=== PATIENT | female | born 1960 | race Two or more races ===

== ENCOUNTER 2023-08-08 19:38 | Inpatient (IN) | payer SELFPAY ==
[~2023-08-08] VITALS: Ht 147.3 cm; Wt 96.9 kg
[2023-08-08] MEDS ORDERED: METOCLOPRAMIDE HCL 5 MG/ML 2 ML VIAL ONE (19:41)
[2023-08-08] MEDS: METOCLOPRAMIDE HCL 5 MG/ML 2 ML VIAL IVP ONE ×2 (19:45→20:20)
[2023-08-08] MEDS: SODIUM CHLORIDE 0.9% 1,000 ML IV ONE (19:55)
[2023-08-08] MEDS: HYDROmorphone HCL 2 MG/ML SYRINGE IVP ONE (19:58)
[2023-08-08 20:12] LABS: HEMATOCRIT 46.1 % (36-46); HEMOGLOBIN 15.4 g/dL (12.0-16.0); MEAN CORPUSCULAR HEMOGLOBIN 32.7 pg (26.0-34.0); MEAN CORPUSCULAR HGB CONC 33.5 G/dL (31.0-37.0); MEAN CORPUSCULAR VOLUME 98 fL (80-100); PLATELET COUNT (AUTO) 209 K/uL (150-450); RED BLOOD CELL COUNT(AUTO) 4.73 MIL/uL (4.00-5.20); RED CELL DISTRIBUTION WIDTH 13.2 % (11.5-14.5); WHITE BLOOD COUNT (AUTO) 21.9 K/uL (4.5-11.0)
[2023-08-08 20:20] LABS: ANION GAP 13 mmol/L (8-16); CALCIUM, TOTAL 9.2 mg/dL (8.8-10.5); CARBON DIOXIDE 29 mmol/L (22-29); CHLORIDE 98 mmol/L (98-107); COVID AG,FIA SOURCE NASAL SWAB; CREATININE 0.75 mg/dL (0.60-1.30); GLOMERULAR FILTR. RATE CALC > 60 mL/min (>60); GLUCOSE,RANDOM 168 mg/dL (70-110); POTASSIUM 3.3 mmol/L (3.5-5.1); SODIUM SERUM 140 mmol/L (136-145); UREA NITROGEN, BLOOD 15 mg/dL (7-18)
[2023-08-08 20:24] LABS: INR 1.1 (0.9-1.1); PROTHROMBIN TIME 11.7 SEC (9.4-11.6)
[2023-08-08 20:25] LABS: TROPONIN I-HIGH SENSITIVITY 5 ng/L (<51)
[2023-08-08 20:32] LABS: B-TYPE NATRIURETIC PEPTIDE 13 pg/mL (0-100)
[2023-08-08 20:38] LABS: SARS-COV2 (COVID) ANTIGEN,FIA Negative (Negative)
[2023-08-08 20:43] LABS: BAND NEUTROPHILS % (MANUAL) 0 % (0-5)
[2023-08-08 20:44] LABS: ALANINE AMINOTRANSFERASE 44 U/L (12-78); ALBUMIN 4.2 g/dL (3.4-5.0); ALKALINE PHOSPHATASE 136 U/L (46-116); ASPARTATE AMINOTRANSFERASE 47 U/L (15-37); BILIRUBIN,TOTAL 0.4 mg/dL (0.1-1.0); CREATINE KINASE, TOTAL ONLY 309 U/L (26-192); LIPASE 87 U/L (16-77); TOTAL PROTEIN, SERUM 8.6 g/dL (6.4-8.2)
[2023-08-08] MEDS: PANTOPRAZOLE SODIUM 40 MG/VIAL IVP ONE (20:45)
[2023-08-08 20:47] LABS: LYMPHOCYTES % (MANUAL) 40 % (22-44); MONOCYTES % (MANUAL) 6 % (2-9); RBC MORPHOLOGY COMMENT NORMAL RBC MORPH; REACTIVE LYMPHOCYTES 6 % (0-0); SEGMENTED NEUTROPHILS % 48 % (40-70); TOTAL CELLS COUNTED 100
[2023-08-08] MEDS: ONDANSETRON HCL 4 MG/2 ML VIAL IVP ONE (20:58)
[2023-08-08 21:05] LABS: APPEARANCE,URINE HAZY (CLEAR); BILIRUBIN,URINE NEGATIVE (NEGATIVE); COLOR,URINE YELLOW (YELLOW); GLUCOSE, URINE (UA) NEGATIVE (NEGATIVE); KETONES,URINE TRACE mg/dL (NEGATIVE); LEUKOCYTE ESTERASE ,URINE NEGATIVE (NEGATIVE); NITRATE,URINE NEGATIVE (NEGATIVE); OCCULT BLOOD,URINE SMALL (NEGATIVE); PH,URINE 5.5 (5.0-8.0); PROTEIN,URINE 100-200,SEE CONFIRM mg/dL (NEGATIVE); UROBILINOGEN,URINE <=1.0 mg/dL (<=1.0)
[2023-08-08 21:27] LABS: SULFOSALICYLIC ACID,URINE 1+ (Negative)
[2023-08-08 21:28] LABS: BACTERIA,URINE None Seen /HPF (None Seen); HYALINE CASTS, URINE 0-2 /LPF (None Seen); RBC,URINE 0-2 /HPF (0-2); SQUAMOUS EPITHELIAL CELL,UR Rare /LPF (None Seen); WBC,URINE 0-2 /HPF (0-5)
[2023-08-08] MEDS: CefTRIAXone 1 GM/DEXTROSE 50 ML IV ONE (21:31)
[2023-08-08] MEDS ORDERED: IOHEXOL 350 MG/ML 100 ML VIAL ONE (21:39)
[2023-08-08] MEDS ORDERED: SODIUM CHLORIDE 0.9% 100 ML ONE (21:39)
[2023-08-08] MEDS ORDERED: LORazepam 2 MG TABLET PO PRN (22:15)
[2023-08-08] MEDS ORDERED: MAGNESIUM SULFATE 4 GM/WATER 100 ML IV PRN (22:30)
[2023-08-08] MEDS ORDERED: MAGNESIUM SULFATE 2 GM/WATER 50 ML IV PRN (22:30)
[2023-08-08] MEDS ORDERED: POTASSIUM CHLORIDE 20 MEQ ER TABLET PO PRN (22:30)
[2023-08-08] MEDS ORDERED: MAGNESIUM OXIDE 400 MG TABLET PO PRN (22:30)
[2023-08-08] MEDS: SODIUM CHLORIDE 0.9% 1,000 ML IV SCH (22:46)
[2023-08-08] MEDS: MAGNESIUM SULFATE 2 GM, MVI, ADULT NO.1 WITH VIT K 10 ML, THIAMINE 100 MG, FOLIC ACID 1... IV SCH (22:46)
[2023-08-08] MEDS: POTASSIUM CHL 10 MEQ/WATER 50 ML IV PRN (22:46)
[2023-08-09] MEDS: PB/HYOSCY/ATR/SCOP/LIDO/MAALOX 55 ML BOTTLE PO ONE (00:49)
[2023-08-09 01:08] VITALS: BP 120/72; PULSE 93; RESP 18; TEMP 98.1
[2023-08-09 02:10] VITALS: BP 109/63; PULSE 79; RESP 18; TEMP 98.5
[2023-08-09 03:11] VITALS: BP 110/63; PULSE 93; RESP 18; TEMP 98.9
[2023-08-09 04:02] VITALS: BP 104/59; PULSE 92; RESP 18; TEMP 98.8
[2023-08-09 04:13] VITALS: BP 116/81; PULSE 91; RESP 18; TEMP 97.7
[2023-08-09] MEDS: PIPERACILLIN/TAZO 3.375 GM/D5W 50 ML IV SCH (05:14)
[2023-08-09] MEDS: INFLUENZA VIRUS VACCINE QVS 2023-24 (6MO+)/PF 60 MCG/0.5 ML SYRINGE IM. ONE (05:21)
[2023-08-09] MEDS ORDERED: LORazepam 2 MG TABLET PO PRN (07:00)
[2023-08-09 07:10] LABS: BASOPHILS % (AUTO) 0.7 % (0.0-2.0); EOSINOPHILS % (AUTO) 0.1 % (1.0-6.0); HEMATOCRIT 37.3 % (36-46); HEMOGLOBIN 12.8 g/dL (12.0-16.0); LYMPHOCYTES # (AUTO) 2.6 K/uL (1.0-4.8); LYMPHOCYTES % (AUTO) 25.8 % (22.0-44.0); MEAN CORPUSCULAR HEMOGLOBIN 33.9 pg (26.0-34.0); MEAN CORPUSCULAR HGB CONC 34.2 G/dL (31.0-37.0); MEAN CORPUSCULAR VOLUME 99 fL (80-100); MONOCYTES # (AUTO) 0.5 K/uL (0.1-1.0); MONOCYTES % (AUTO) 4.8 % (2.0-9.0); NEUTROPHILS # (AUTO) 7.1 K/uL (1.8-7.7); NEUTROPHILS % (AUTO) 68.6 % (40.0-70.0); PLATELET COUNT (AUTO) 170 K/uL (150-450); RED BLOOD CELL COUNT(AUTO) 3.76 MIL/uL (4.00-5.20); RED CELL DISTRIBUTION WIDTH 12.9 % (11.5-14.5); WHITE BLOOD COUNT (AUTO) 10.3 K/uL (4.5-11.0)
[2023-08-09 07:26] LABS: ANION GAP 9 mmol/L (8-16); CALCIUM, TOTAL 7.3 mg/dL (8.8-10.5); CARBON DIOXIDE 26 mmol/L (22-29); CHLORIDE 106 mmol/L (98-107); GLOMERULAR FILTR. RATE CALC > 60 mL/min (>60); GLUCOSE,RANDOM 120 mg/dL (70-110); POTASSIUM 3.6 mmol/L (3.5-5.1); SODIUM SERUM 141 mmol/L (136-145); UREA NITROGEN, BLOOD 11 mg/dL (7-18)
[2023-08-09 07:34] LABS: TROPONIN I-HIGH SENSITIVITY 5 ng/L (<51)
[2023-08-09] MEDS: ONDANSETRON HCL 4 MG/2 ML VIAL IVP PRN (08:49)
[2023-08-09] MEDS: LORazepam 2 MG TABLET PO SCH (08:49)
[2023-08-09] MEDS: DOCUSATE SODIUM 100 MG CAPSULE PO SCH (08:49)
[2023-08-09] MEDS: PANTOPRAZOLE SODIUM 40 MG/VIAL IVP SCH (08:49)
[2023-08-09] MEDS: ACETAMINOPHEN 325 MG TABLET PO PRN (20:10)
[2023-08-09 20:40] VITALS: BP 113/66; PULSE 81; RESP 18; TEMP 98.5
[2023-08-09] MEDS: HEPARIN SODIUM,PORCINE 5,000 UNITS/ML VIAL SQ SCH (23:07)
[2023-08-10 03:32] VITALS: BP 122/81; PULSE 71; RESP 18; TEMP 98.2
[2023-08-10 07:06] LABS: BASOPHILS % (AUTO) 1.2 % (0.0-2.0); EOSINOPHILS % (AUTO) 1.5 % (1.0-6.0); HEMATOCRIT 40.2 % (36-46); HEMOGLOBIN 13.8 g/dL (12.0-16.0); LYMPHOCYTES # (AUTO) 4.9 K/uL (1.0-4.8); LYMPHOCYTES % (AUTO) 56.9 % (22.0-44.0); MEAN CORPUSCULAR HEMOGLOBIN 33.8 pg (26.0-34.0); MEAN CORPUSCULAR HGB CONC 34.3 G/dL (31.0-37.0); MEAN CORPUSCULAR VOLUME 99 fL (80-100); MONOCYTES # (AUTO) 0.4 K/uL (0.1-1.0); MONOCYTES % (AUTO) 4.8 % (2.0-9.0); NEUTROPHILS % (AUTO) 35.6 % (40.0-70.0); PLATELET COUNT (AUTO) 102 K/uL (150-450); RED BLOOD CELL COUNT(AUTO) 4.08 MIL/uL (4.00-5.20); RED CELL DISTRIBUTION WIDTH 13.3 % (11.5-14.5); WHITE BLOOD COUNT (AUTO) 8.5 K/uL (4.5-11.0)
[2023-08-10 07:25] LABS: ANION GAP 9 mmol/L (8-16); CALCIUM, TOTAL 7.2 mg/dL (8.8-10.5); CARBON DIOXIDE 26 mmol/L (22-29); CHLORIDE 106 mmol/L (98-107); GLOMERULAR FILTR. RATE CALC > 60 mL/min (>60); GLUCOSE,RANDOM 121 mg/dL (70-110); POTASSIUM 3.5 mmol/L (3.5-5.1); SODIUM SERUM 140 mmol/L (136-145); UREA NITROGEN, BLOOD 8 mg/dL (7-18)
[2023-08-10 09:18] VITALS: BP 133/77; PULSE 78; RESP 18; TEMP 98.2
[2023-08-10 15:53] VITALS: BP 118/72; PULSE 82; RESP 19; TEMP 98.4
[2023-08-10 19:29] VITALS: BP 133/77; PULSE 77; RESP 18; TEMP 98.1
[2023-08-11 04:02] VITALS: BP 142/89; PULSE 76; RESP 18; TEMP 97.8
[2023-08-11] MEDS ORDERED: LORazepam 1 MG TABLET PO PRN (07:00)
[2023-08-11 07:04] LABS: EOSINOPHILS % (AUTO) 2.2 % (1.0-6.0); HEMATOCRIT 40.1 % (36-46); HEMOGLOBIN 13.6 g/dL (12.0-16.0); LYMPHOCYTES # (AUTO) 4.2 K/uL (1.0-4.8); LYMPHOCYTES % (AUTO) 60.3 % (22.0-44.0); MEAN CORPUSCULAR HEMOGLOBIN 33.4 pg (26.0-34.0); MEAN CORPUSCULAR VOLUME 98 fL (80-100); MONOCYTES # (AUTO) 0.4 K/uL (0.1-1.0); MONOCYTES % (AUTO) 6.2 % (2.0-9.0); NEUTROPHILS # (AUTO) 2.1 K/uL (1.8-7.7); NEUTROPHILS % (AUTO) 30.3 % (40.0-70.0); PLATELET COUNT (AUTO) 159 K/uL (150-450); RED BLOOD CELL COUNT(AUTO) 4.08 MIL/uL (4.00-5.20); RED CELL DISTRIBUTION WIDTH 12.9 % (11.5-14.5)
[2023-08-11 07:22] LABS: ANION GAP 9 mmol/L (8-16); CALCIUM, TOTAL 8.2 mg/dL (8.8-10.5); CARBON DIOXIDE 25 mmol/L (22-29); CHLORIDE 107 mmol/L (98-107); CREATININE 0.62 mg/dL (0.60-1.30); GLOMERULAR FILTR. RATE CALC > 60 mL/min (>60); GLUCOSE,RANDOM 107 mg/dL (70-110); POTASSIUM 3.6 mmol/L (3.5-5.1); SODIUM SERUM 141 mmol/L (136-145); UREA NITROGEN, BLOOD 6 mg/dL (7-18)
[2023-08-11] MEDS: LORazepam 1 MG TABLET PO SCH (08:20)
[2023-08-11 09:21] VITALS: BP 148/86; PULSE 74; RESP 18; TEMP 97.9
[2023-08-11 15:40] VITALS: BP 136/77; PULSE 74; RESP 16; TEMP 98.1
[2023-08-11] MEDS ORDERED: AMOX1TAB16 PO (17:51)
[2023-08-11] MEDS ORDERED: PANT-31 PO (17:51)
[2023-08-12] MEDS ORDERED: LORazepam 1 MG TABLET PO PRN (07:00)
== END 2023-08-11 19:14 | disposition home or self-care (01) | DRG 391 ==
LOC: EMS 19:39 → 6S 22:06
PROVIDERS: ADMIT Internal Medicine; ATTEND Internal Medicine
DX: K29.20 Alcoholic gastritis without bleeding (principal); J69.0 Pneumonitis due to inhalation of food and vomit; F10.239 Alcohol dependence with withdrawal, unspecified; R65.10 Systemic inflammatory response syndrome (SIRS) of non-infectious origin without acute organ dysfunction; K56.7 Ileus, unspecified; K52.9 Noninfective gastroenteritis and colitis, unspecified; F10.229 Alcohol dependence with intoxication, unspecified; R09.02 Hypoxemia; Y90.8 Blood alcohol level of 240 mg/100 ml or more; Z20.822 Contact with and (suspected) exposure to COVID-19
CPT/HCPCS: 74022; 74177; 80048; 80053; 81001; 81002; 82550; 83690; 83735; 83880; 84484; 85025; 85610; 85730; 87040; 93005; 99285; C9113; G0480; J0696; J1170; J1644; J2405; J2543; J2765; J3411; J3475; J3480; J3490; J7030; J7050; Q9967